=== PATIENT | male | born 1970 | race Caucasian/White ===

== ENCOUNTER → 2019-07-02 09:46 | Outpatient (CLI) | payer BC, SELFPAY ==
[2019-07-02 10:02] LABS: Basophils % 0.6 % (0.1-2.0); Eosinophils # 0.2 K/mm3 (0.0-0.4); Eosinophils % 3.1 % (0.1-12.0); Hematocrit 47.8 % (42.0-52.0); Hemoglobin 16.1 g/dL (14.1-18.0); Lymphocytes # 1.7 K/mm3 (0.7-4.5); Lymphocytes % 31.8 % (10-50); Mean Corpuscular HGB Conc 33.7 g/dL (31.8-35.4); Mean Corpuscular Hemoglobin 30.4 pg (27.0-31.2); Mean Corpuscular Volume 90.3 fl (80-94); Mean Platelet Volume 7.2 fl (7.4-10.4); Monocytes # 0.3 K/mm3 (0.1-1.0); Monocytes % 5.5 % (1.7-9.3); Neutrophils # 3.1 K/mm3 (1.8-7.8); Platelet Count 266 K/mm3 (142-424); Red Cell Distribution Width 12.8 % (11.5-17.5); White Blood Count 5.2 K/mm3 (4.8-10.8)
[2019-07-02 13:42] LABS: Alanine Aminotransferase 26 U/L (12-78); Albumin Level 3.8 gm/dL (3.4-5.0); Albumin/Globulin Ratio 1.4 (1.1-1.8); Alkaline Phosphatase 83 U/L (46-116); Anion Gap 12.5 mEq/L (5-15); Aspartate Amino Transferase 20 U/L (15-37); Bilirubin,Total 0.9 mg/dL (0.2-1.0); Blood Urea Nitrogen 17 mg/dL (7-18); Calcium 8.6 mg/dL (8.5-10.1); Carbon Dioxide 26 mmol/L (21.0-32.0); Chloride 107 mmol/L (98-107); Chol/HDL Ratio 3.4 (1-3.5); Cholesterol 141 mg/dL (140-200); Creatinine,Serum 1.15 mg/dL (0.70-1.30); Estimated Glomerular Filt Rate 68 ml/min (>60); GFR (African American) 82 ML/MIN (>60); Globulin 2.7 gm/dl (1.3-3.2); Glucose 90 mg/dL (74-106); HDL Cholesterol 41 mg/dL (27-67); LDL Cholesterol 87 mg/dL (0-130); Potassium 4.5 mmoL/L (3.5-5.1); Sodium 141 mmol/L (136-145); Thyroid Stimulating Hormone 4.09 uIU/ml (0.358-3.740); Total Protein,Serum 6.5 gm/dL (6.4-8.2); Triglycerides 63 mg/dL (30-200); VLDL Cholesterol 13 mg/dL (0-40)
== END ==
PROVIDERS: Visit Provider Physician Assistant
DX: R21 Rash and other nonspecific skin eruption (principal); Z13.29 Encounter for screening for other suspected endocrine disorder; Z13.220 Encounter for screening for lipoid disorders
CPT/HCPCS: 36415; 80053; 80061; 84443; 85025

== ENCOUNTER → 2020-08-21 12:03 | Outpatient (CLI) | payer BC, SELFPAY ==
--- NOTE | 2020-08-21 12:07 | XR_ITS ---
PROCEDURE: XR ELBOW RT MIN 3V CLINICAL INDICATION: right elbow pain COMPARISON: No exams were available for comparison FINDINGS: No fracture or dislocation. No lytic or blastic change. There is normal mineralization. The joint spaces are well-preserved. No significant degenerative/arthritic changes. No erosive changes evident. Other findings:None. IMPRESSION: No acute findings. Dictated by: Tye Driscoll MD 08/21/2020 15:13 Tye Driscoll MD in [place] 08/21/2020 15:13
== END ==
PROVIDERS: PCP Physician Assistant; Visit Provider Orthopaedic Surgery
DX: M25.521 Pain in right elbow (principal)
CPT/HCPCS: 73080

== ENCOUNTER 2020-09-02 14:25 | Emergency (ER) | payer BC, SELFPAY ==
[2020-09-02 15:01] VITALS: BP 149/93; PULSE 72; RESP 16; TEMP 36.6; O2SAT 98; BMI 30.1
--- NOTE | 2020-09-02 15:35 | HMH.EDUTC ---
[facility] [place] Clinical Impression: Laceration Disposition: Home, Self-Care Condition on Discharge: Good Instructions: DI for Laceration Repair, DI for Laceration Repair -- Simple Additional Instructions: watch for s/s of infection return in 10 days for suture removal antibiotics as ordered Prescriptions: cephALEXin [Cephalexin 500mg Tab] 500 mg PO BID 7 Days #14 tab Transmission Status: Pending to [facility] #[id number] Referrals: Edyta Newton APRN [Primary Care Provider] - Time of Disposition: 15:40 Medical Decision Making - Anup Inquiry Pt receiving controlled substance: No Vital Signs: 09/02/20 15:01 Temperature 97.9 F Temperature Source Tympanic Pulse Rate [Right] 72 Respiratory Rate 16 Blood Pressure [Right Arm] 149/93 H Blood Pressure Mean [Right Arm] 111 Blood Pressure Source [Right Arm] Automatic Cuff Blood Pressure Position [Right Arm] Sitting 02 Sat by Pulse Oximetry 98 Oxygen Delivery Method Room Air [facility] [place] - General Chief complaint: Urgent Treatment Center Stated complaint: AO cut R hand on barbwire 1400 Time Seen by Provider: 09/02/20 15:35 Mode of Arrival: Ambulatory Source of Information: Patient Limitations: No Limitations Description of Symptoms (Recalled from Triage Doc. by RN): pt cut his right palm on a piece of abner wire. the cut is about an inch long and superficial. pt had the tetnus vaccination less than a year ago. HEENT Symptoms (Recalled from RN notes): No Resp Symptoms (Recalled from RN notes): No Skin Symptoms (Recalled from RN notes): Yes (lac on R palm) MS Symptoms (Recalled from RN notes): No Functional Status (Recalled from RN notes): na - History of Present Illness Provider Complaint: 49 yr old male presents for laceration to rt palm. Pt states he cut his right palm on a piece of abner wire. pt had the tetnus vaccination less than a year ago. - Related Data Home Medications Medication Instructions Recorded Confirmed citalopram 10 mg tablet 20 mg PO DAILY tab 08/21/20 08/21/20 tamsulosin 0.4 mg capsule 0.4 mg PO DAILY 08/21/20 08/21/20 Previous Rx's Medication Instructions Recorded cephALEXin [Cephalexin 500mg Tab] 500 mg PO BID 7 Days #14 tab 09/02/20 Allergies Allergy/AdvReac Type Severity Reaction Status Date / Time prednisone Allergy Verified 09/02/20 15:06 - Worker's Comp Is this a Worker's Comp case?: No [facility] History - Hepatitis A Screen Drug use history?: No High risk sexual behaviors?: No History of sexually transmitted infection?: No Currently employed?: No Childcare worker?: No Do you have indoor plumbing?: Yes Do you have electricity?: Yes Attestation statement:: This patient has been screened for Hepatitis A risk factors. I have reviewed the patient's past medical history: Yes - Social History Smoking Status: Unknown if ever smoked Alcohol Intake: never Alcohol Intake Frequency:: holidays/special occasions only Occupational Status: employed Housing: house Household Members: spouse, children Family Hx:: No significant family history ROS Obtained: Yes Systems reviewed as appropriate & no additional complaints - Constitutional Constitutional: Reports system reviewed and no additional complaints, except as docu, Denies chills, Denies fever(s) - Eyes Eyes: Reports system reviewed and no additional complaints, except as docu, Denies blurry vision - ENT Ears, Nose, Mouth, and Throat: Reports system reviewed and no additional complaints, except as docu, Denies nasal obstruction - Cardiovascular Cardiovascular: Reports system reviewed and no additional complaints, except as docu, Denies chest pain at rest - Respiratory Respiratory: Reports system reviewed and no additional complaints, except as docu, Denies change in phlegm color - Gastrointestinal Gastrointestingal: Reports: system reviewed and no additional complaints, except as docu. Denies: pain with swallowing - Genitourinary Male Ge
[2020-09-02 15:49] VITALS: BP 139/74; PULSE 86; RESP 16; TEMP 36.6
== END 2020-09-02 15:49 | disposition home or self-care (01) ==
PROVIDERS: Emergency Provider Nurse Practitioner Family; PCP Nurse Practitioner Family
DX: S61.411A Laceration without foreign body of right hand, initial encounter (principal); W26.8XXA Contact with other sharp object(s), not elsewhere classified, initial encounter; Y92.89 Other specified places as the place of occurrence of the external cause
CPT/HCPCS: 12001; 99202; G0463

== ENCOUNTER 2023-09-11 07:14 | Outpatient (CLI) | payer BC, SELFPAY ==
--- NOTE | 2023-09-11 07:15 | CT_ITS ---
FINAL REPORT TECHNIQUE: Axial CT images of the chest was performed by computed tomography . High-resolution technique was utilized with supine on inspiration and expiration and prone on inspiration. CLINICAL HISTORY: .soa FINDINGS: There is a calcified granuloma in the right upper lobe. There is mild scarring in the right lung base. There is no evidence of interstitial lung disease. On expiration, there is evidence of small areas of air trapping in the lung bases. There is no bronchiectasis or emphysema. IMPRESSION: No evidence of interstitial lung disease, bronchiectasis, or emphysema. Small areas of air trapping in the lung bases. Reviewed, Interpreted and Dictated by Blayne Ariza III, MD Transcribed by Edyta Rosenbaum Authenticated and [facility]
== END 2023-09-11 23:59 ==
LOC: RAD 07:15
PROVIDERS: PCP Physician Assistant; Visit Provider Internal Medicine Pulmonary Disease
DX: J84.9 Interstitial pulmonary disease, unspecified (principal); R06.09 Other forms of dyspnea
CPT/HCPCS: 71250; 94060; 94618; 94726; 94729